=== PATIENT | male | born 1980 | race Caucasian/White ===

== ENCOUNTER 2022-04-30 17:51 | Inpatient (IN) | payer OTHER ==
[~2022-04-30] VITALS: Wt 97.1 kg
[2022-04-30 17:57] VITALS: BP 115/60
[2022-04-30 18:43] LABS: HEMATOCRIT 47.7 % (42.0-52.0); MEAN CELL VOLUME 86.3 fl (80.0-94.0); MEAN CORPUSCULAR HGB CONC 34.8 g/dl (33.0-37.0); MEAN PLATELET VOLUME 9.1 fl (9.6-12.3); PLATELET COUNT AUTOMATED 359 10*3/uL (130-400); RED BLOOD COUNT 5.53 10*6/uL (4.50-5.90); RED CELL DISTRI WIDTH 12.2 % (0-14.5); WHITE BLOOD COUNT 19.9 10*3/uL (4.8-10.8)
[2022-04-30 19:16] LABS: ALKALINE PHOSPHATASE 80 U/L (46-116); BUN 10 mg/dl (9-23); CHLORIDE 99 mmol/L (98-107); CREATININE 1.43 mg/dL (0.70-1.30); POTASSIUM 3.9 mmol/L (3.4-5.1); SGPT/ALT 43 U/L (10-49); SODIUM 137 mmol/L (136-145); TOTAL PROTEIN 7.4 gm/dL (6.0-8.0)
[2022-04-30 19:23] LABS: LIPASE 2931 U/L (12-53)
[2022-04-30 19:43] LABS: MANUAL DIFF REFLEX YES
[2022-04-30 19:47] LABS: PLATELET SUFFICIENCY NORMAL (NORMAL); TOTAL CELLS COUNTED 100 #CELLS
[2022-04-30 21:54] LABS: CHOLESTEROL 108 mg/dL (<200); LDL CHOLESTEROL 44 mg/dL (9-159); TRIGLYCERIDES 122 mg/dl (<150)
== END 2022-05-01 02:49 | disposition left against medical advice (07) | DRG 438 ==
LOC: ED 17:51 → EDHOLD 21:21
PROVIDERS: Student in an Organized Health Care Education/Training Program; ADMIT Internal Medicine; ATTEND Internal Medicine
DX: K85.90 Acute pancreatitis without necrosis or infection, unspecified (principal); N17.0 Acute kidney failure with tubular necrosis; R65.10 Systemic inflammatory response syndrome (SIRS) of non-infectious origin without acute organ dysfunction; E87.20 Acidosis, unspecified; Z53.29 Procedure and treatment not carried out because of patient's decision for other reasons; I10 Essential (primary) hypertension; E03.9 Hypothyroidism, unspecified; E11.40 Type 2 diabetes mellitus with diabetic neuropathy, unspecified; E11.65 Type 2 diabetes mellitus with hyperglycemia; F17.210 Nicotine dependence, cigarettes, uncomplicated; Z87.11 Personal history of peptic ulcer disease; Z88.8 Allergy status to other drugs, medicaments and biological substances; Z83.3 Family history of diabetes mellitus; Z82.49 Family history of ischemic heart disease and other diseases of the circulatory system; Z84.1 Family history of disorders of kidney and ureter; Z81.8 Family history of other mental and behavioral disorders; Z71.6 Tobacco abuse counseling; Z79.899 Other long term (current) drug therapy